=== PATIENT | male | born 1970 | race Caucasian/White ===

== ENCOUNTER 2017-01-19 14:00 | Emergency (ER) | payer OTHER ==
[2017-01-19] MEDS ORDERED: LORAZEPAM 2 MG/ML VIAL IV ONE ×2 (14:20→15:20)
[2017-01-19] MEDS ORDERED: MVI, ADULT NO.4 WITH VIT K 10 ML, THIAMINE HCL IV 100 MG in 0.9 % SODIUM CHLORIDE 1000M... IV SCH ×3 (14:30)
[2017-01-19] MEDS ORDERED: ONDANSETRON HCL IV 4 MG/2 ML VIAL IVP ONE (14:42)
[2017-01-19 14:45] LABS: BASO % 1.7 % (0-6); EOS % 0.4 % (0-6); GRAN % 59.6 % (47-80); HEMATOCRIT 46.1 % (42.0-52.0); HEMOGLOBIN 15.3 gm/dl (14.0-18.0); LYMPH % 29.4 % (16-45); MEAN CELL VOLUME 88.5 fl (81-97); MEAN CORPUSCULAR HEMOGLOBIN 29.4 pg (27-33); MEAN CORPUSCULAR HGB CONC 33.2 g/dl (32-36); MEAN PLATELET VOLUME 8.3 fl (7.4-10.4); MONO % 8.9 % (0-9); PLATELET COUNT 435 K/uL (130-400); RED BLOOD COUNT 5.21 M/uL (4.40-5.70); WHITE BLOOD COUNT W/O DIFF 5.4 K/uL (4.2-12.2)
[2017-01-19 14:56] LABS: ALCOHOL 0.093 g/dL (0-0.010); ANION GAP 23.1 (7-16); BLOOD UREA NITROGEN 6 mg/dL (9-20); CARBON DIOXIDE 21.9 mmol/L (22-30); CREATININE 0.7 mg/dL (0.66-1.25); EST GLOMERULAR FILTRATION RATE > 60 ml/min; GLUCOSE,RANDOM 156 mg/dL (70-110); LIPASE 50 U/L (23-300)
[2017-01-19] MEDS ORDERED: POTASSIUM CHLORIDE 40 MEQ/15ML 40 MEQ/15 ML ML PO ONE (15:20)
[2017-01-19 15:45] LABS: URINE APPEARANCE CLEAR; URINE BILIRUBIN NEGATIVE (NEGATIVE); URINE BLOOD SMALL (NEGATIVE); URINE KETONE 160 mg/dL (NEGATIVE); URINE LEUKOCYTE ESTERASE NEGATIVE (NEGATIVE); URINE NITRITE NEGATIVE (NEGATIVE)
[2017-01-19 15:46] LABS: URINE COLOR DARK YELLOW
[2017-01-19 15:49] LABS: URINE BACTERIA NONE SEEN; URINE EPITHELIAL CELLS NONE SEEN (FEW); URINE RBC RARE (NONE SEEN); URINE WBC NONE SEEN (0-2/hpf)
--- NOTE | 2017-01-19 16:16 | Emergency Department Record ---
History of Present Illness - General Chief Complaint: Chest Pain Stated Complaint: CHEST PAIN Time Seen by Provider: 01/19/17 14:11 Source: Patient Mode of Arrival: Wheelchair Limitations: No limitations - History of Present Illness Initial Comments: pt came in c/o withdrawing from alcohol having severe DTs and having cp. he states he binge drinks 3 fifths of vodka at a time. his friend states he has gone thru 15 fifths this week. he has a hx of alcoholic seizures. he does not no when his last drink was as he blacked out and is not sure how long he was out Onset/Timin -: Days(s) Onset: Other Pain Location: Left chest Pain Radiation: Neck Severity scale (1-10): 8 Quality: Sharp Consistency: Constant Improves With: Nothing Worsens With: Nothing Context: Other Anginal Symptoms: Diaphoresis, Nausea, Vomiting Treatments Prior to Arrival: None - Related Data Home Medications Medication Instructions Recorded Confirmed Last Taken Lisinopril 20 mg PO DAILY 01/19/17 01/19/17 Unknown Metformin HCl 500 mg PO BID 01/19/17 01/19/17 Unknown Omeprazole [Prilosec] 20 mg PO DAILY 01/19/17 01/19/17 Unknown Prazosin HCl [Minipress] 1 mg PO QHS 01/19/17 01/19/17 Unknown Sertraline HCl [Zoloft] 50 mg PO DAILY 01/19/17 01/19/17 Unknown Thiamine HCl [B-1] 100 mg PO DAILY 01/19/17 01/19/17 Unknown Allergies Allergy/AdvReac Type Severity Reaction Status Date / Time No Known Drug Allergies Allergy Verified 01/19/17 14:23 Travel Screening - Travel/Exposure Within Last 30 Days Have you traveled within the last 30 days?: No Review of Systems Reviewed: No additional complaints except as noted below Constitutional: Reports: As per HPI. Denies: Chills, Fever, Malaise, Night sweats, Weakness, Weight change Eyes: Reports: As per HPI. Denies: Eye discharge, Eye pain, Photophobia, Vision change ENT: Reports: As per HPI. Denies: Congestion, Dental pain, Ear pain, Epistaxis , Hearing loss, Throat pain Respiratory: Reports: As per HPI. Denies: Cough, Dyspnea, Hemoptysis, Stridor, Wheezes Cardiovascular: Reports: As per HPI. Denies: Arrhythmia, Chest pain, Dyspnea on exertion, Edema, Murmurs, Orthopnea, Palpitations, Paroxysmal nocturnal dyspnea, Rheumatic Fever, Syncope Endocrine: Reports: As per HPI. Denies: Fatigue, Heat or cold intolerance, Polydipsia, Polyuria Gastrointestinal: Reports: As per HPI. Denies: Abdominal pain, Constipation, Diarrhea, Hematemesis, Hematochezia, Melena, Nausea, Vomiting Genitourinary: Reports: As per HPI. Denies: Dysuria, Frequency, Hematuria, Incontinence, Retention, Testicular pain, Testicular mass, Urgency Musculoskeletal: Reports: As per HPI. Denies: Arthralgia, Back pain, Gout, Joint swelling, Myalgia, Neck pain Skin: Reports: As per HPI. Denies: Bruising, Change in color, Change in hair/ nails, Lesions, Pruritus, Rash Neurological: Reports: As per HPI. Denies: Abnormal gait, Confusion, Headache, Numbness, Paresthesias, Seizure, Tingling, Tremors, Vertigo, Weakness Psychiatric: Reports: As per HPI. Denies: Anxiety, Auditory hallucinations, Depression, Homicidal thoughts, Suicidal thoughts, Visual hallucinations Hematological/Lymphatic: Reports: As per HPI. Denies: Anemia, Blood Clots, Easy bleeding, Easy bruising, Swollen glands Past Medical History - SOCIAL HISTORY Smoking Status: Current every day smoker Alcohol Use: Heavy Drug Use: None - RESPIRATORY Hx Respiratory Disorders: No - CARDIOVASCULAR Hx Cardio Disorders: Yes Hx Hypertension: Yes - NEURO Hx Neuro Disorders: Yes Hx Seizures: Yes (alcohol) - GI Hx GI Disorders: Yes Hx Pancreatitis: Yes - Hx Genitourinary Disorders: No - ENDOCRINE Hx Endocrine Disorders: Yes Hx Diabetes: Yes - MUSCULOSKELETAL Hx Musculoskeletal Disorders: No - PSYCH Hx Psych Problems: Yes Hx Anxiety: Yes Hx Depression: Yes (PTSD) - HEMATOLOGY/ONCOLOGY Hx Hematology/Oncology Disorders: No Family Medical History Any Significant Family History?: No Physical Exam - General General Appearance: Alert, Oriented x3, Cooperative, Moderate distress - Head Head exam: Normal inspection - Eye Eye exam: Normal appearance, PERRL, EOMI Pupils: Normal accommodation - ENT ENT exam: Normal exam, Mucous membranes moist, Normal external ear exam, Normal orophraynx Ear exam: Normal external inspection. negative: External canal tenderness Nasal Exam: Normal inspection. negative: Discharge, Sinus tenderness Mouth exam: Normal external inspection, Tongue normal Teeth exam: Normal inspection. negative: Dental caries Throat exam: Normal inspection. negative: Tonsillar erythema, Tonsillar exudate - Neck Neck exam: Normal inspection, Full ROM. negative: Tenderness - Respiratory Respiratory exam: Normal lung sounds bilaterally. negative: Respiratory distress - Cardiovascular Cardiovascular Exam: Normal rhythm, Normal heart sounds, Tachycardia - GI/Abdominal GI/Abdominal exam: Soft, Normal bowel sounds. negative: Tenderness - Rectal Rectal exam: Deferred - exam: Deferred - Extremities Extremities exam: Normal inspection, Full ROM, Normal capillary refill. negative: Tenderness - Back Back exam: Reports: Normal inspection, Full ROM. Denies: Muscle spasm, Rash noted, Tenderness - Neurological Neurological exam: Alert, CN II-XII intact, Normal gait, Oriented X3, Other ( tremors, asterixis) - Psychiatric Psychiatric exam: Agitated, Anxious, Normal affect, Normal mood - Skin Skin exam: Diaphoretic, Dry, Intact, Normal color, Warm Course Vital Signs 01/19/17 14:51 Temperature 98.2 F Pulse Rate [ 103 H Kiln Maintenance ] Respiratory 24 Rate Blood Pressure 154/111 [Left Arm] Pulse Ox 96 Medical Decision Making - Lab Data Result diagrams: 01/19/17 14:35 01/19/17 14:35 Lab Results 01/19/17 01/19/17 01/19/17 Range/Units 14:35 14:35 15:40 WBC 5.4 (4.2-12.2) K/uL RBC 5.21 (4.40-5.70) M/uL Hgb 15.3 (14.0-18.0) gm/dl Hct 46.1 (42.0-52.0) % MCV 88.5 (81-97) fl MCH 29.4 (27-33) pg MCHC 33.2 (32-36) g/dl RDW 13.0 (11.5-14.5) % Plt Count 435 H (130-400) K/uL MPV 8.3 (7.4-10.4) fl Gran % 59.6 (47-80) % Lymphocytes % 29.4 (16-45) % Monocytes % 8.9 (0-9) % Eosinophils % 0.4 (0-6) % Basophils % 1.7 (0-6) % Sodium 140 (136-145) mmol/L Potassium 3.2 L (3.5-5.1) mmol/L Chloride 95 L (98-107) mmol/L Carbon Dioxide 21.9 L (22-30) mmol/L Anion Gap 23.1 H (7-16) BUN 6 L (9-20) mg/dL Creatinine 0.7 (0.66-1.25) mg/dL Estimated GFR > 60 ml/min Random Glucose 156 H (70-110) mg/dL Calcium 9.6 (8.5-10.1) mg/dL Magnesium 1.1 L (1.6-2.3) mg/dL Lipase 50 (23-300) U/L Urine Color Dark yellow Urine Appearance Clear Urine pH 6.5 (5.0-8.0) Ur Specific [place] >= 1.030 (1.002-1.030) Urine Protein 100 mg/dl H (NEGATIVE) Urine Glucose (UA) 100 mg/dl H (NEGATIVE) Urine Ketones 160 mg/dl H (NEGATIVE) Urine Blood Small H (NEGATIVE) Urine Nitrite Negative (NEGATIVE) Urine Bilirubin Negative (NEGATIVE) Urine Urobilinogen 1.0 (0.20 - 1.00) E.U./dL Ur Leukocyte Esterase Negative (NEGATIVE) Urine RBC Rare (NONE SEEN) Urine WBC None seen (0-2/hpf) Ur Epithelial Cells None seen (FEW) Urine Bacteria None seen Ethyl Alcohol 0.093 H (0-0.010) g/dL Disposition Disposition: Transfer Clinical Impression: Alcohol withdrawal Qualifiers: Complication of substance-induced condition: with unspecified complication Qualified Code(s): F10.239 - Alcohol dependence with withdrawal, unspecified Chest pain Qualifiers: Chest pain type: unspecified Qualified Code(s): R07.9 - Chest pain, unspecified Disposition: Acute Care Hospital Transfer Transfer To: [facility] Reason For Transfer: alcohol withdrawal w hx of alcohol seizures and chest pain Accepting Physician: dr holcomb Time Discussed w/Accepting Physician: 16:52 Forms: Patient Portal Access
[2017-01-19 16:25] LABS: AMPHETAMINE SCREEN URINE NOT DETECTED; BARBITURATE SCREEN URINE NOT DETECTED; BENZODIAZEPINE SCREEN URINE DETECTED; COCAINE SCREEN URINE NOT DETECTED; METHADONE SCREEN URINE NOT DETECTED; METHAMPHETAMINE SCREEN NOT DETECTED; OPIATE SCREEN URINE NOT DETECTED; OXYCODONE SCREEN URINE NOT DETECTED; PHENCYCLIDINE SCREEN URINE NOT DETECTED; PROPOXYPHENE SCREEN URINE NOT DETECTED; THC SCREEN URINE NOT DETECTED; TRICYCLIC ANTIDEPRESSANT SCRN NOT DETECTED
[2017-01-19 16:28] LABS: CREATINE PHOSPHOKINASE 177 U/L (55-170)
[2017-01-19] MEDS ORDERED: KETOROLAC 30 MG/ML VIAL IVP ONE (16:38)
[2017-01-19 16:41] LABS: CKMB 1.7 ug/L (0-6); TROPONIN I < 0.012 ng/mL (0.00-0.034)
[2017-01-19] MEDS ORDERED: 0.9 % SODIUM CHLORIDE 1,000 ML BAG IV ONE (16:49)
[2017-01-19 16:53] LABS: INR 1.01; PARTIAL THROMBOPLASTIN TIME 26.4 SECONDS (24.5-39.1); PROTHROMBIN TIME (PATIENT) 11.4 SECONDS (9.5-12.1)
== END 2017-01-19 18:13 | disposition short-term general hospital (02) ==
LOC: ER 14:00
DX: F10.221 Alcohol dependence with intoxication delirium (principal); F10.239 Alcohol dependence with withdrawal, unspecified; Y90.4 Blood alcohol level of 80-99 mg/100 ml; R07.9 Chest pain, unspecified; R11.2 Nausea with vomiting, unspecified; R61 Generalized hyperhidrosis; I10 Essential (primary) hypertension; F17.220 Nicotine dependence, chewing tobacco, uncomplicated
CPT/HCPCS: 99285 ×2; 96376; 96365; 96375; 82550; 83735; 83690; 82140; 85025; 85730; 85610; 82553; 84484; 80048; 81001; 80305; 70450; 93005; 93010; G0480; J1885; J2405; J2060; 80320; J3411; J7030